=== PATIENT | female | born 1995 | race Caucasian/White ===

== ENCOUNTER 2023-10-22 02:24 | Emergency (ER) | payer SELFPAY ==
[2023-10-22 02:33] VITALS: BP 121/78
--- NOTE | 2023-10-22 05:50 | ED.GENMED ---
History of Present Illness
General
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
Source: patient and significant other
Time Seen by Provider: 10/22/23 05:46
Nursing documentation reviewed up to this point in time: agreed with
Travel History
Have you had any contact with someone who has COVID-19?: No
Do you have any symptoms of coronavirus? Fever > 100 degrees, chills, cough, shortness of breath, sore throat, loss of taste or smell, muscle aches, or headache?: No
History of Present Illness
History of Present Illness:
This a pleasant 27-year-old female who recently immigrated here from the [facility]. She was having intercourse with her significant other tonight and developed a sharp vaginal pain that radiates through to her rectum. She denies any bleeding or
vaginal discharge. She came in to get it evaluated. Upon arrival she stated that the pain had resolved. She denies fever, chills, nausea or vomiting. She states that she had this pain 1 other time under the same scenario and states that she was
diagnosed with a ruptured ovarian cyst. She denies any complaints at time of my HPI.
Review of Systems
Review of Systems
Allergies reviewed?: Yes
All Other Systems: ROS reviewed and negative except as documented in HPI and ROS
Constitutional: Reports no symptoms
EENT: Reports no symptoms
Respiratory: Reports no symptoms
Cardiac: Reports no symptoms
ABD/GI: Reports no symptoms
: Reports no symptoms
Musculoskeletal: Reports no symptoms
Skin: Reports no symptoms
Neurological: Reports no symptoms
Endocrine: Reports no symptoms
Hematologic/Lymphatic: Reports no symptoms
Psychiatric: Reports anxiety
Phy Exam
General Physical Exam
General Presentation: well appearing
General age: appears stated age
General Skin: warm and dry
General Habitus: normal
General Hydration: appears well hydrated
Cardiovascular Exam
Cardiovascular Exam: regular rate/rhythm and no edema
Pulmonary Exam
Pulmonary Exam: lungs clear and no respiratory distress
Neurological Exam
Neurological Exam: alert and oriented x3
Musculoskeletal Exam
Musculoskeletal Exam: full ROM
Skin Exam
Skin Exam: normal color and warm/dry
Psychiatric Exam
Psychiatric Exam: normal mood/affect
Course
Orders/Labs/Results
Orders:
Orders
10/22/23 04:00
US Pelvis [US Pelvis Only (non-obstetric)] Urgent
Comment:
Reason For Exam: pelvic pain post intercourse
Vital Signs
Initial and Last Documented VS:
Initial Vital Signs
Temp Pulse Resp BP Pulse Ox
98.2 F 76 20 121/78 98
10/22/23 02:33 10/22/23 02:33 10/22/23 02:33 10/22/23 02:33 10/22/23 02:33
Last Documented Vital Signs
Temp Pulse Resp BP Pulse Ox
98.2 F 76 20 121/78 98
10/22/23 02:33 10/22/23 02:33 10/22/23 02:33 10/22/23 02:33 10/22/23 02:33
*Radiology
Radiology exam reviewed: all reviewed NAD by ED Provider
*Pulse Oximetry
Patient hypoxic: no
*Critical Care Note
Total Time (30-74mins, 75-104mins- exclusive of procedures): Not Applicable
ED Attending Note
-
Portions of this chart may have been created with voice recognition software.� Occasional wrong word or��sound alike� substitutions may have occurred due to the inherent limitations of voice recognition software.
Discharge Plan
Departure
Patient Disposition: Home (Routine Discharge)
Date of Disposition: 10/22/23
Time of Disposition: 05:50
Patient with high blood pressure during this ER visit?: Yes
Condition: Good
Discharge Problem:
Pelvic pain
Instructions: Pelvic Pain, BLOOD PRESSURE
Referrals:
[facility] [Outside]
[facility] [Outside]
NONE,* [Family Provider] -
Mitzy Ortiz MD [Active] -
Activity Restrictions/Additional Instructions:
It was a pleasure meeting you and taking part in your care. We hope for your continued healing and wellness.
Please read discharge instructions in their entirety. However, they are for general education and may not describe your exact diagnosis at discharge. Information on your ER visit and medical conditions were discussed with you along with appropriate
follow up information...
If indicated, please take your medications as instructed and indicated on discharge paperwork.
Please schedule a follow up appointment as directed. Call to schedule an appointment
Please return to the emergency department with ANY change in, persisting, or worsening of symptoms. If any of your symptoms do not improve, or persist, or become more severe within 6-12 hours, please return to the emergency department for further
care.
Please return to the emergency department if you develop a headache, neck pain/stiffness, fever greater than 100.4F, chest pain, shortness of breath, persistent nausea, vomiting, slurred speech, difficulty walking, numbness/tingling, weakness, signs
of infection or any other symptoms that are worrisome to you.
If you have any questions or concerns please do not hesitate to call the Hospital at or E-mail me directly at [email or web address]
Interventions
Interventions:
*Risk Screen - Suicide Last Done: 10/22/23 02:33
*General Assessment Last Done: 10/22/23 02:33
*Neglect/Abuse Screening Last Done: 10/22/23 02:33
ED- Fall Risk Assessment Last Done: 10/22/23 02:33
*ED COVID-19 Vaccine History Last Done: 10/22/23 02:33
*Nursing Disposition Last Done: 10/22/23 05:58
ED-Female Genitourinary Assessment Last Done: 10/22/23 04:55
Discharge Date and Time
Discharge Date/Time: 10/22/23 05:58
Print Language: SPANISH
== END 2023-10-22 05:58 | disposition home or self-care (01) ==
LOC: EMR 02:24
PROVIDERS: EMERGENCY PHYSICIAN Student in an Organized Health Care Education/Training Program
DX: R10.2 Pelvic and perineal pain (principal); R03.0 Elevated blood-pressure reading, without diagnosis of hypertension
CPT/HCPCS: 99284; 76856

== ENCOUNTER → 2024-06-13 09:22 | Outpatient (REF) | payer OTHER, SELFPAY | LOC: HWRAD 09:22 | PROVIDERS: ATTENDING PHYSICIAN Student in an Organized Health Care Education/Training Program | DX: R53.83 Other fatigue (principal) | CPT/HCPCS: 76536 ==